=== PATIENT | female | born 2000 | race African-American/Black ===

== ENCOUNTER 2024-11-21 00:44 | Emergency (ER) | payer MEDICAID, OTHER ==
[~2024-11-21] VITALS: Ht 162.6 cm; Wt 91.0 kg
[2024-11-21 00:48] VITALS: TEMP 37.1; O2SAT 100
[2024-11-21] MEDS: ACETAMINOPHEN 500MG TABLET PO ONE (04:31)
[2024-11-21] MEDS ORDERED: NAPR-1176 MT (05:37)
[2024-11-21 05:51] VITALS: BP 133/78; PULSE 73; RESP 18; O2SAT 100
== END 2024-11-21 05:51 | disposition home or self-care (01) ==
LOC: ER 00:44
DX: M26.69 Other specified disorders of temporomandibular joint (principal); J45.909 Unspecified asthma, uncomplicated
CPT/HCPCS: 99283